=== PATIENT | male | born 1985 | race African-American/Black ===

== ENCOUNTER 2021-02-11 17:39 | Emergency (ER) | payer OTHER, SELFPAY ==
--- NOTE | 2021-02-11 17:47 | ECG_ITS ---
Test Reason : OVERDOSE Blood Pressure : / mmHG Vent. Rate : 110 BPM Atrial Rate : 110 BPM P-R Int : 122 ms QRS Dur : 094 ms QT Int : 344 ms P-R-T Axes : 053 057 049 degrees QTc Int : 465 ms Sinus tachycardia Otherwise normal ECG When compared with ECG of 09-FEB-2019 13:48, No significant change was found Referred By: Cynthia West Electronically Signed By:SEAN ADAMES
[2021-02-11 17:50] VITALS: BP 126/86; BP 140/80; PULSE 120; PULSE 89; RESP 16; TEMP 36.7; O2SAT 98; BMI 22.1
--- NOTE | 2021-02-11 18:10 | ED.OVERDOSE ---
HPI - Overdose General Chief Complaint: Overdose Stated Complaint: od/ 12mg narcan given Time Seen by Provider: 02/11/21 17:47 Source: patient and EMS Mode of arrival: EMS Limitations: no limitations History of Present Illness HPI Narrative: 35-year-old male with no significant past medical history presents via EMS for overdose. He was given 12 mg of Narcan in the community. Patient does admit to using heroin but will not disclose the amount. He states this overdose was accidental, does not describe any other complaints at this time. He does not state to be suicidal, homicidal, denies chest pain or pressure, palpitations, shortness of breath, abdominal pain, abdominal distention, dysuria, hematuria, fevers or chills. MD complaint: accidental overdose Onset (ago): hour(s) (Within the hour of arrival) Context: Accidental Overdose: wanted to get high Treatments Prior to Arrival: narcan Related Data Allergies Allergy/AdvReac Type Severity Reaction Status Date / Time codeine [CODEINE] Allergy Unknown UNKNOWN Unverified 07/22/20 19:30 Review of Systems Review of Systems: Constitutional: No Fever, No Chills ENT/Mouth: No sore throat, No Rhinorrhea Eyes: No Eye Pain, No Swelling, No Redness Cardiovascular: No Chest Pain, No SOB Respiratory: No Cough, No Sputum Gastrointestinal: No Nausea, No Vomiting, No Diarrhea, No abdominal Pain Genitourinary: No Dysuria, No Hematuria Musculoskeletal: No joint pain, No Myalgias, No Joint Swelling Skin: No Skin Lesions, No rash Neuro: No Weakness, No Numbness, No Loss of Consciousness, No Dizziness, No Headache Psych: No Anxiety, No Depression, No SI/HI/AH/VH Heme/Lymph: No Bruising, No Bleeding,No Lymphadenopathy Endocrine: No Polyuria, No Polydipsia Yes all other systems are reviewed and are negative [facility] Past Medical History Attestation statement: The following information was validated with the patient. Source: old records reviewed Medical History Chronic pancreatitis Diabetes Social History Social History Advance Directives: No Advance Directives Information Provided: No Physical Exam Vital Signs: Vital Signs: Last Vital Signs Temp 98.0 F 02/11/21 17:50 Pulse 106 H 02/11/21 19:43 Resp 15 02/11/21 19:43 BP 126/86 02/11/21 17:50 Pulse Ox 98 02/11/21 19:43 Body Mass Index 22.1 Appearance: Alert. Oriented X3. No acute distress. Eyes: Pupils equal, round and reactive to light. EOMI, sclera nonicteric ENT: Pharynx normal. Moist mucous membranes Neck: Normal inspection. Neck supple. No JVD CVS: Tachycardic heart rate and rhythm. Pulses equal to all extremities Respiratory: No respiratory distress. Lung sounds clear to auscultation all lobes Abdomen: Soft and nontender. Skin: Skin warm and dry. Normal skin color. Normal skin turgor. Has large scar on the right side of his neck, present since age 12. Extremities: No lower extremity edema. Moves all extremities against resistance and spontaneously. Neuro: No motor deficit. No sensory deficit. Cranial nerves 2-12 intact. Course Course Course Narrative: 35-year-old male with no significant past medical history presents via EMS from the community for overdose. Was given 12 mg of Narcan. Patient is easily arousable, following directions, speaking to us in a polite manner. Plan of care is to monitor. O2 sat 97% on room air, tachycardic at 112 EKG pending. Lung sounds clear to auscultation all lobes, no reported vomiting low suspicion for aspiration. No chest pain or chest wall tenderness, no faint crackles bilateral lower lung sounds low likelihood of pulmonary edema at this time. 6:10 p.m. O2 sat 97% on room air, patient is alert oriented x4, easily arousable, lung sounds are clear, no chest pain. 7:09 p.m. O2 sat remains at 99% on room air, alert oriented x4, lung sounds clear, no chest pain or pressure. Tachycardic in the 100s. Plan of care is to discharge home. MDM - Overdose Differential Diagnosis Differential diagnosis: Likely drug overdose (Accidental) Medical Records Attestation: I reviewed the patient's medical records. Lab Data Attestation: I reviewed the patient's lab results. Labs: Lab Results 02/11/21 Range/Units 18:19 POC Glucose 152 H (60-115) mg/dL ECG Data Attestation: I personally reviewed and interpreted this ECG as follows: ECG interpretation date: 02/11/21 ECG interpretation time: 17:52 Interpretation: Vent. rate 110 BPM [place] interval 122 ms QRS duration 94 ms QT/QTc 344/465 ms P-R-T axes 53 57 49 Sinus tachycardia Otherwise normal ECG When compared with ECG of 09-FEB-2019 13:48, No significant change was found Discharge Plan Discharge Clinical Impression: Drug overdose Patient Disposition: Home, Self-Care Instructions: Opioid Safety (ED), Opioid Use Disorder (ED) Additional Instructions: Please consider detox. Thank you for choosing this emergency department for evaluation. Please follow-up with primary care physician as needed. Return to the emergency department for any new, concerning, or worsening symptoms. Interventions: ED Discharge Assessment Last Done: 02/11/21 19:44 Discharge Date/Time: 02/11/21 19:45
--- NOTE | 2021-02-11 18:18 | MHC.RECOVSUP ---
? Reason for consult: Overdose o Current location: [facility] o Identified substance use concern: Heroin - Overdose - Support ? Intervention: o Community resources provided o Harm reduction discussion ? Additional information: Patient refused any services.. Patient was supplied with [facility] And [facility] Information as well with a list of Resources (Detox)
[2021-02-11 18:22] LABS: Glucose, Whole Blood 152 mg/dL (60-115)
[2021-02-11] MEDS: Naloxone HCl Nasal TAKE HOME 4 MG SPRAY NOSTRILALT (19:36)
[2021-02-11 19:43] VITALS: PULSE 106; RESP 15; O2SAT 98
== END 2021-02-11 19:45 | disposition home or self-care (01) ==
PROVIDERS: Emergency Provider Internal Medicine
DX: T40.1X1A Poisoning by heroin, accidental (unintentional), initial encounter (principal); Y92.9 Unspecified place or not applicable; F11.10 Opioid abuse, uncomplicated; Z71.51 Drug abuse counseling and surveillance of drug abuser
CPT/HCPCS: 82947; 93005; 99283

== ENCOUNTER 2021-02-12 19:15 | Emergency (ER) | payer OTHER, SELFPAY ==
[2021-02-12 19:22] VITALS: BP 106/56; PULSE 133; RESP 16; TEMP 36.4; O2SAT 95; BMI 31.0
--- NOTE | 2021-02-12 19:30 | ED.OVERDOSE ---
HPI - Overdose General Chief Complaint: Overdose Stated Complaint: OVERDOSE,1MG NARCAN Time Seen by Provider: 02/12/21 19:30 Source: EMS Mode of arrival: EMS History of Present Illness HPI Narrative: Patient picked up by EMS from an alley in [facility] reported patient was acting lethargic a short 2 bags of heroin was given 1 mg Narcan by EMS on arrival patient alert oriented x3 saturating 95% at room air. Patient was seen here yesterday for same MD complaint: accidental overdose Related Data Allergies Allergy/AdvReac Type Severity Reaction Status Date / Time codeine [CODEINE] Allergy Unknown UNKNOWN Unverified 07/22/20 19:30 Review of Systems Review of Systems: Yes all other systems are reviewed and are negative COUNT INCLUDES THE [facility] Past Medical History Medical History Chronic pancreatitis Diabetes Social History Social History Alcohol intake: unknown Use of substances other than those prescribed or required for medical reasons: Yes Substance Use Type: Heroin Advance Directives: No Advance Directives Information Provided: Yes Physical Exam Vital Signs: Vital Signs: Last Vital Signs Temp 97.6 F 02/12/21 19:22 Pulse 133 H 02/12/21 19:22 Resp 16 02/12/21 19:22 BP 106/56 L 02/12/21 19:22 Pulse Ox 95 02/12/21 19:22 Body Mass Index 31.0 Appearance: Alert. Oriented X3. No acute distress. Eyes: PERRLA, No Nystagmus ENT: Pharynx normal. Oral Mucosa moist Neck: Normal inspection. Neck supple. CVS: Normal heart rate and rhythm. Pulses normal. Respiratory: No respiratory distress. Equal air entry bilateral, no wheezing/rales/rhonchi Abdomen: Soft and nontender. Bowel sounds are present, no mass palpable, no CVA tenderness Skin: Skin warm and dry. Normal skin color. Normal skin turgor. IVDA track villagomez++ Extremities: No lower extremity edema. No calf tenderness Neuro: Oriented X 3. No motor deficit. No sensory deficit.No cerebellar signs , cranial nerves II-XII intact MDM - Overdose Lab Data Labs: Lab Results 02/12/21 Range/Units 19:35 COVID-19 ([facility]) Negative (Negative) COVID-19 Clin Com See Note Discharge Plan Discharge Clinical Impression: Drug overdose Patient Disposition: Home, Self-Care Instructions: Opioid Use Disorder (ED) Additional Instructions: stop using opiates and follow-up with detox Interventions: ED Discharge Assessment Last Done: 02/12/21 19:43 Discharge Date/Time: 02/12/21 19:47
[2021-02-12 20:07] LABS: COVID-19 Test Negative (Negative); IDNOW Serial# 9DD0AD1C
== END 2021-02-12 19:47 | disposition home or self-care (01) ==
PROVIDERS: Emergency Provider Internal Medicine
DX: T40.1X1A Poisoning by heroin, accidental (unintentional), initial encounter (principal); R40.4 Transient alteration of awareness; E11.9 Type 2 diabetes mellitus without complications; Y92.480 Sidewalk as the place of occurrence of the external cause; Z20.822 Contact with and (suspected) exposure to COVID-19
CPT/HCPCS: 36415; 87635; 99283; 99284

== ENCOUNTER 2021-03-19 18:21 | Emergency (ER) | payer OTHER, SELFPAY ==
[2021-03-19 18:45] VITALS: BP 144/96; PULSE 110; RESP 20; TEMP 37.2; O2SAT 100; BMI 31.9
[2021-03-19 18:59] LABS: Glucose, Whole Blood 49 mg/dL (60-115)
--- NOTE | 2021-03-19 19:13 | ED_ITS ---
HPI - Overdose General Chief Complaint: Overdose Stated Complaint: overdose Source: patient and EMS Mode of arrival: EMS Limitations: no limitations History of Present Illness HPI Narrative: 35-year-old male with past medical history of type 1 diabetes, and history of substance abuse presents via EMS for suspected heroin fentanyl overdose. Was given Narcan in the field. At this time patient is alert oriented, polite. States that he gets recurrent pancreatitis, is unable to obtain pain medications from a physician and uses heroin and fentanyl at times for pain management. He denies chest pain or pressure, palpitations, shortness of breath, dizziness, lightheadedness, shortness of breath, shortness breath on exertion, abdominal pain, abdominal distention, dysuria, hematuria, nausea, vomiting, diarrhea, constipation, and any other concerning symptoms. MD complaint: accidental overdose Onset (ago): hour(s) (Within the hour of arrival) Treatments Prior to Arrival: narcan Related Data Allergies Allergy/AdvReac Type Severity Reaction Status Date / Time codeine [CODEINE] Allergy Unknown UNKNOWN Unverified 07/22/20 19:30 Review of Systems Review of Systems: Constitutional: No Fever, No Chills ENT/Mouth: No sore throat, No Rhinorrhea Eyes: No Eye Pain, No Swelling, No Redness Cardiovascular: No Chest Pain, No SOB Respiratory: No Cough, No Sputum Gastrointestinal: No Nausea, No Vomiting, No Diarrhea, No abdominal Pain Genitourinary: No Dysuria, No Hematuria Musculoskeletal: No joint pain, No Myalgias, No Joint Swelling Skin: No Skin Lesions, No rash Neuro: No Weakness, No Numbness, No Loss of Consciousness, No Dizziness, No Headache Psych: No Anxiety, No Depression, No SI/HI/AH/VH Heme/Lymph: No Bruising, No Bleeding,No Lymphadenopathy Endocrine: No Polyuria, No Polydipsia PMFSH Past Medical History Attestation statement: The following information was validated with the patient. Source: old records reviewed Medical History Chronic pancreatitis Diabetes Social History Social History Alcohol intake: unknown Smoking Status: Unknown if ever smoked Use of substances other than those prescribed or required for medical reasons: Yes Substance Use Type: Heroin Advance Directives: No Advance Directives Information Provided: Yes Physical Exam Vital Signs: Vital Signs: Last Vital Signs Temp 97.2 F 03/19/21 20:00 Pulse 93 03/19/21 20:00 Resp 20 03/19/21 19:58 BP 177/108 H 03/19/21 20:00 Pulse Ox 100 03/19/21 20:00 Body Mass Index 31.9 Appearance: Alert. Oriented X3. No acute distress. Head: Normal external exam. Normocephalic. Atraumatic. No Venegas signs noted. No raccoon eyes noted Eyes: PERRLA. EOMI. Conjunctiva and sclera normal. Eyelids normal. ENT: TM's Normal. Pharynx normal. Uvula midline. Moist mucous membranes. No trismus noted. No drooling noted. No muffled voice noted. Neck: Normal inspection. Neck supple. No adenopathy. CVS: Normal heart rate and rhythm. Heart sound normal. No murmurs noted. Pulses equal to all extremities. Respiratory: No respiratory distress. Painless inspiration. Breath sounds normal. No wheezes/rales/rhonchi noted. Chest nontender. No accessory muscle usage noted or decreased air movement noted. Abdomen: Soft and nontender. Bowel sounds normal in all 4 quadrants. No distention noted. No organomegaly noted. No visible injury noted. Back: No CVA tenderness. Full range of motion noted. Skin: Skin warm and dry. Normal skin color. Normal skin turgor. No rashes/lesions/lacerations noted. Extremities: No lower extremity edema. Extremities exhibit normal range of motion. Extremities nontender. Neuro: cranial nerves 2-12 intact, no focal neural deficits, strength 5/5 to all extremities, No motor deficit. No sensory deficit. Course Course Course Narrative: 35-year-old male with past medical history of type 1 diabetes, chronic pancreatitis, and substance abuse disorder presents with unintentional overdose. Was given Narcan in the field. It is noted that his blood sugar is 49, we did give PO fluids and food. He did not require any IV intervention as he is alert oriented, walking, and has no focal neural deficits. 7:59 p.m. repeat blood sugar 145. Patient has been able to maintain O2 sats at 100%, patient has been awake, alert oriented x4, polite and cooperative thro ughout his entire stay. His blood pressure has been elevated, he is prescribed amlodipine by a primary care physician however he has not been taking it because he does not feel he needs blood pressure medication. He was advised to take blood pressure medication because of high blood pressure is a silent killer. Education provided by this TEST DESIGN ENGINEER to patient and he agrees to do better about taking his medications. He was given some information about detox facilities. Plan of care is to discharge home. MDM - Overdose Differential Diagnosis Differential diagnosis: Likely drug overdose Medical Records Attestation: I reviewed the patient's medical records. Lab Data Labs: Lab Results 03/19/21 03/19/21 Range/Units 18:56 19:55 POC Glucose 49 L* 145 H (60-115) mg/dL Discharge Plan Discharge Clinical Impression: Drug overdose, Hypoglycemia, Hypertension Patient Disposition: Home, Self-Care Instructions: Hypoglycemia in a Person with Diabetes (ED), Narcotic Safety (ED), Hypertension (ED), Opioid Safety (ED), Narcotic Use Disorder (ED) Additional Instructions: You were evaluated for drug overdose that was unintentional. Please consider detox. Please take your blood sugar on a regular basis as you are diabetic. Your blood sugar was really low at 49. Upon discharge blood sugar was 147. Please take your blood pressure medication. This is really important because you cannot feel if your blood pressure is high. Thank you for choosing this emergency department for evaluation. Please follow-up with primary care physician as needed. Return to the emergency department for any new, concerning, or worsening symptoms. Interventions: ED Discharge Assessment Last Done: 03/19/21 20:19 Discharge Date/Time: 03/19/21 20:20
[2021-03-19 19:58] VITALS: BP 177/108; PULSE 93; RESP 20; TEMP 36.2; O2SAT 100
[2021-03-19 20:00] VITALS: BP 177/108; PULSE 93; TEMP 36.2; O2SAT 100
[2021-03-19 20:03] LABS: Glucose, Whole Blood 145 mg/dL (60-115)
[2021-03-19] MEDS: Naloxone HCl Nasal TAKE HOME 4 MG SPRAY NOSTRILALT (20:08)
== END 2021-03-19 20:20 | disposition home or self-care (01) ==
PROVIDERS: Emergency Provider Emergency Medicine
DX: T40.1X1A Poisoning by heroin, accidental (unintentional), initial encounter (principal); Y92.9 Unspecified place or not applicable; E10.649 Type 1 diabetes mellitus with hypoglycemia without coma; I10 Essential (primary) hypertension
CPT/HCPCS: 82947; 99283; 99285

== ENCOUNTER 2021-04-25 12:27 | Emergency (ER) | payer OTHER, SELFPAY ==
--- NOTE | 2021-04-25 12:38 | ED_ITS ---
HPI - Overdose General Chief Complaint: ETOH/Substance Use Stated Complaint: ALTERED S/P DRUG USE, NARCAN GIVEN Time Seen by Provider: 04/25/21 12:37 Source: patient Mode of arrival: ambulatory Limitations: no limitations History of Present Illness MD complaint: accidental overdose Onset (ago): minute(s) Timing confirmed by: other Context: Accidental Overdose: other (sometimes take heroin for his body aches) Treatments Prior to Arrival: narcan (2mg IN) Related Data Allergies Allergy/AdvReac Type Severity Reaction Status Date / Time codeine [CODEINE] Allergy Unknown UNKNOWN Unverified 07/22/20 19:30 Review of Systems Review of Systems: Constitutional : No Fever, No Chills ENT/Mouth : No Ear Pain, No Nasal Congestion, No sore throat Eyes: No Eye Pain, No Swelling, No Redness Cardiovascular : No Chest Pain, No SOB Respiratory : No Cough, No Sputum, No Dyspnea Gastrointestinal : No Nausea, No Vomiting, No Diarrhea, No Hematochezia, No Melena Genitourinary : No Dysuria, No Urinary Frequency, No Hematuria Musculoskeletal : No Myalgias Skin : No Skin Lesions, No rash Neuro : No Weakness, No Numbness, No Paresthesias, No Dizziness, No Headache Psych : no Anxiety, noDepression, no SI/HI Heme/Lymph: No Lymphadenopathy Endocrine : No Polyuria, No Polydipsia All other systems reviewed and are negative [facility] Past Medical History Attestation statement: The following information was validated with the patient. Medical History Chronic pancreatitis Diabetes Osteomyelitis Surgical History Hx of cholecystectomy Social History Social History (Updated 04/25/21 @ 12:58 by Cleo Singh DO) Alcohol intake: unknown Patient Tobacco Use Status: Tobacco use Unknown Substance Use Type: Heroin Advance Directives: Yes Advance Directives Information Provided: No Advance Directives on File: No Physical Exam Vital Signs: Vital Signs: Last Vital Signs Temp 98.9 F 04/25/21 12:47 Pulse 110 H 04/25/21 12:47 Resp 18 04/25/21 12:47 BP 128/73 04/25/21 12:47 Pulse Ox 98 04/25/21 12:47 Body Mass Index 29.1 Appearance: Alert. Oriented X3. No acute distress. Eyes: Pupils equal, round and reactive to light. ENT: Pharynx normal. Neck: Normal inspection. Neck supple. CVS: Normal heart rate and rhythm. Pulses normal. Respiratory: No respiratory distress. Breath sounds normal. Abdomen: Soft and nontender. Skin: Skin warm and dry. Normal skin color. Normal skin turgor. Extremities: No lower extremity edema. No calf ttp Neuro: Oriented X 3. No motor deficit. No sensory deficit. MDM - Overdose MDM Narrative Medical decision making narrative: 35 yo male accidental heroin overdose - no SI, GCS 15, he agrees to stay for 1 hour observation does not want detox, possible recovery coaches, given narcan in hand Discharge Plan Discharge Clinical Impression: Drug overdose Qualifiers: Encounter type: initial encounter Injury intent: accidental or unintentional Qualified Code(s): T50.901A - Poisoning by unspecified drugs, medicaments and biological substances, accidental (unintentional), initial encounter Patient Disposition: Home, Self-Care Instructions: Opioid Use Disorder (ED) Additional Instructions: return to ED for any worsening symptoms or concerns carry narcan Stand Alone Forms: Work/School Release Interventions: ED Discharge Assessment Last Done: 04/25/21 13:41 Discharge Date/Time: 04/25/21 13:41
[2021-04-25 12:47] VITALS: BP 125/70; BP 128/73; PULSE 110; PULSE 140; RESP 18; TEMP 37.2; O2SAT 90; O2SAT 98; BMI 29.1
[2021-04-25] MEDS: Naloxone HCl Nasal TAKE HOME 4 MG SPRAY NOSTRILALT (13:37)
--- NOTE | 2021-04-25 13:48 | MHC.RECOVSUP ---
? Reason for consult:Continuity of care o Current location:[address] [place] [address] o Identified substance use concern:Heroin - Support ? Intervention: o Community resources provided o Harm reduction discussion ? Plan: o Patient to follow up with [facility] after discharge ? Additional information: Pt. given resources, Pt. refuses all services
--- NOTE | 2021-04-25 14:49 | MHC.RECOVSUP ---
Recovery Support note: Patient is a 35 year old Bangladeshi speaking male who presented to [facility] ED due to an accidental overdose. This keno writer and Timber Supervisor Leo met with patient to discuss his recovery and treatment options. Patient reports he has been living with chronic pain due to medical conditions that he has been dealing with since childhood. Patient reports he has experienced stigma due to his heroin use and that he only uses to manage his pain. Patient acknowledged how dangerous it is to use substances obtained from the community and he reports a desire to stop using. Patient does not want to get on methadone. Patient expressed interest in Suboxone and has information on the [facility]. Discussed pain management with patient and provided him with information on the clinic at [facility]. Timber Supervisor provided patient with information on community supports.
== END 2021-04-25 13:41 | disposition home or self-care (01) ==
PROVIDERS: Emergency Provider Emergency Medicine; PCP Pediatrics
DX: T40.1X1A Poisoning by heroin, accidental (unintentional), initial encounter (principal); Y92.9 Unspecified place or not applicable
CPT/HCPCS: 99283

== ENCOUNTER 2021-06-04 14:16 | Emergency (ER) | payer OTHER, SELFPAY ==
[2021-06-04 14:27] VITALS: BP 148/88; BP 170/75; PULSE 105; PULSE 111; TEMP 36.8; O2SAT 96; BMI 25.8
--- NOTE | 2021-06-04 14:28 | ED.OVERDOSE ---
HPI - Overdose General Chief Complaint: ETOH/Substance Use Stated Complaint: found on down sidewalk s/p heroin use,no narcan Time Seen by Provider: 06/04/21 14:28 Source: patient and EMS Mode of arrival: EMS Limitations: no limitations History of Present Illness HPI Narrative: 35 yo male unintentional heroin overose, no trauma, no narcan needed but did drink and use today, no SI complaint: accidental overdose Onset (ago): minute(s) Context: Accidental Overdose: wanted to get high and other (used 1.5 bags of heroin, found passed out on side of road, no signs of trauma) Associated symptoms: other (not related but notes L eye has stye) Treatments Prior to Arrival: none Related Data Allergies Allergy/AdvReac Type Severity Reaction Status Date / Time codeine [CODEINE] Allergy Unknown UNKNOWN Unverified 07/22/20 19:30 Review of Systems Review of Systems: Constitutional : No Weight loss, No Fever, No Chills, No Fatigue, No Malaise ENT/Mouth : No sore throat, No Rhinorrhea Eyes: No Eye Pain, No Swelling, pos Redness Cardiovascular : No Chest Pain, No SOB, No Dyspnea on Exertion, No Orthopnea, No Edema, No Palpitations Respiratory : No Cough, No Sputum, No Wheezing Gastrointestinal : No Nausea, No Vomiting, No Diarrhea, No Constipation, No abdominal Pain, No Hematochezia, No Melena Genitourinary : No Dysuria, No Urinary Frequency, No Hematuria, Musculoskeletal : No joint pain, No Myalgias, No Joint Swelling Skin : No Skin Lesions, No rash Neuro : No Weakness, No Numbness, No Dizziness, No Headache Psych : No Anxiety/Panic, No Depression, no SI/HI Heme/Lymph: No Bruising, No Bleeding,No Lymphadenopathy Endocrine : No Polyuria, No Polydipsia All other systems reviewed and are negative PMFSH Past Medical History Attestation statement: The following information was validated with the patient. Medical History Chronic pancreatitis Diabetes Osteomyelitis Surgical History Hx of cholecystectomy Social History Social History Alcohol intake: current Alcohol intake frequency: a few times a week Patient Tobacco Use Status: Current everyday Tobacco user Use of substances other than those prescribed or required for medical reasons: Yes Substance Use Type: Heroin and Marijuana Advance Directives: No Advance Directives Information Provided: No Physical Exam Vital Signs: Vital Signs: Last Vital Signs Temp 98.2 F 06/04/21 14:27 Pulse 111 H 06/04/21 14:27 BP 148/88 H 06/04/21 14:27 Pulse Ox 96 06/04/21 14:27 Body Mass Index 25.8 Appearance: Alert. Oriented X3. No acute distress. Eyes: Pupils equal, round and reactive to light. L eye small stye noted with mild conjunctival injection lower lid ENT: Pharynx normal. Neck: Normal inspection. Neck supple. CVS: Normal heart rate and rhythm. Pulses normal. Respiratory: No respiratory distress. Breath sounds normal. Abdomen: Soft and nontender. Skin: Skin warm and dry. Normal skin color. Normal skin turgor. Extremities: No lower extremity edema. No calf ttp Neuro: Oriented X 3. No motor deficit. No sensory deficit. Course Course Course Narrative: MDM: 35 yo male unintentional heroin overdose no signs of trauma - offered recovery coaches at this time c/o L eye stye - will provide ointment, dispo per clinical stability and discussion with substance abuse teams no need for narcan observed in ED - stable for DC Discharge Plan Discharge Clinical Impression: Accidental heroin overdose Patient Disposition: Home, Self-Care Instructions: Opioid Use Disorder (ED) Additional Instructions: return to ED for any worsening symptoms or concerns please utilize the resources given to you by Isaias from our treatment team
[2021-06-04 14:31] LABS: Glucose, Whole Blood 230 mg/dL (60-115)
[2021-06-04] MEDS: Erythromycin Base 0.5% Oph Oin 1 GM TUBE 1 CM EYE-LEFT (14:40)
--- NOTE | 2021-06-04 15:13 | MHC.RECOVSUP ---
Recovery Support note: Patient is a 35 year old Eritrean speaking male who presented to [facility] via EMS after being found in the community lying down, under the influence of opioids. Patient is known to this check writer salesperson from a previous consultation. When this check writer salesperson approached, patient was awake, alert and engaging with ED staff. Patient reports he uses due to chronic pain and stress related to his family treating him poorly. Patient suspects that the substance he used prior to arrival had fentanyl in it. Patient reports his body does not tolerate fentanyl well and he reports it causes memory loss, something he typically does not experience. Discussed with patient the high incidence of fentanyl in this area and the dangers inherent in substance use. Patient reports he has never had Suboxone or methadone prescribed however he has gotten Suboxone off of the street. Discussed each medication with patient and provided him with information on clinics near his home. Encouraged patient to go to a methadone clinic on Sunday to get established as a patient. Discussed the outpatient therapy component of MAT and how it may benefit patient. Patient reports he is not interested in detox and that he wants to discharge. Discussed case with patient's RN and ED provider.
== END 2021-06-04 15:12 | disposition home or self-care (01) ==
PROVIDERS: Emergency Provider Emergency Medicine; PCP Pediatrics
DX: T40.1X1A Poisoning by heroin, accidental (unintentional), initial encounter (principal); Y92.480 Sidewalk as the place of occurrence of the external cause; H00.015 Hordeolum externum left lower eyelid; E11.9 Type 2 diabetes mellitus without complications; F17.210 Nicotine dependence, cigarettes, uncomplicated; F12.90 Cannabis use, unspecified, uncomplicated
CPT/HCPCS: 82947; 99284

== ENCOUNTER 2021-07-27 09:58 | Outpatient (REF) | payer OTHER, SELFPAY ==
[2021-07-27 17:08] LABS: Fentanyl, urine POSITIVE (Not Detect)
== END 2021-07-27 09:59 | disposition home or self-care (01) ==
LOC: CF 09:58
PROVIDERS: Visit Provider Internal Medicine
DX: F11.20 Opioid dependence, uncomplicated (principal); T50.901A Poisoning by unspecified drugs, medicaments and biological substances, accidental (unintentional), initial encounter
CPT/HCPCS: 36415; 80307; 99202

== ENCOUNTER 2021-07-31 13:29 | Emergency (ER) | payer OTHER, SELFPAY ==
[2021-07-31 14:10] VITALS: BP 184/96; BP 198/75; PULSE 126; RESP 16; TEMP 36.9; O2SAT 98; BMI 27.2
[2021-07-31 14:21] LABS: Basophils Percent Auto 0.4 % (0-2); Eosinophils Percent Auto 0.6 % (0-4); Hematocrit 27.1 % (42-52); Hemoglobin 9.2 g/dl (14.0-18.0); Imm Gran Abs Auto 0.02 X10*3/uL (0.00-0.03); Imm Gran Pct Auto 0.4 % (0.0-0.4); Lymphocytes Absolute Auto 0.6 X10*3/uL (1.2-4.9); Lymphocytes Percent Auto 12.1 % (20-40); MANUAL DIFF FLAG NO; Mean Corpuscular HGB Conc 33.9 g/dl (31.0-36.0); Mean Corpuscular Hemoglobin 29.4 pg (27.0-33.0); Mean Corpuscular Volume 86.6 fL (80-98); Mean Platelet Volume 9.6 fL (9.4-12.4); Monocytes Absolute Auto 0.3 X10*3/uL (0.1-1.2); Monocytes Percent Auto 6.9 % (2-11); Neutrophils Percent Auto 79.6 % (45-73); Platelet Count 275 X10*3/uL (160-400); Red Blood Count 3.13 X10*6/uL (4.60-5.80); Red Cell Distribution Width 13.2 % (11.0-16.0)
--- NOTE | 2021-07-31 14:33 | ED_ITS ---
HPI - Overdose General Chief Complaint: Overdose Stated Complaint: FOUND EMOTIONAL, ? OD, NO NARCAN NEEDED PER EMS Time Seen by Provider: 07/31/21 14:00 History of Present Illness HPI Narrative: Patient is a 35-year-old male history of polysubstance abuse. Patient claims that he used 2 bags of heroin just prior to arrival. Also complained that he signed out AMA from [facility] after having acute bouts of renal failure. Patient denies any chest pain shortness of breath any nausea vomiting. Has no systemic complaints. Patient was using heroin just prior to arrival. Related Data Previous Rx's Medication Instructions Recorded buprenorphine 8 mg-naloxone 2 mg 2 film SUBLINGUAL DAILY 7 Days #14 07/27/21 sublingual film (Suboxone) ea clonidine HCl 0.1 mg tablet 0.1 mg PO TID #21 tab 07/27/21 hydroxyzine pamoate 25 mg capsule 25 mg PO TID PRN #21 cap 07/27/21 (Vistaril) Review of Systems Review of Systems: No chest pain or shortness breath no dizziness no nausea no vomiting Positive generalized malaise Yes all other systems are reviewed and are negative [facility] Past Medical History Attestation statement: The following information was validated with the patient. Medical History Chronic pancreatitis Diabetes Fentanyl use disorder, moderate, dependence Opioid use disorder Osteomyelitis Surgical History Hx of cholecystectomy Social History Social History Alcohol intake: current Alcohol intake frequency: a few times a week Patient Tobacco Use Status: Current everyday Tobacco user Substance Use Type: Heroin and Marijuana Advance Directives: No Advance Directives Information Provided: Yes Physical Exam Vital Signs: Vital Signs: Last Vital Signs Temp 98.4 F 07/31/21 14:10 Pulse 126 H 07/31/21 14:10 Resp 16 07/31/21 14:10 BP 184/96 H 07/31/21 14:10 Pulse Ox 98 07/31/21 14:10 Body Mass Index 27.2 Appearance: Alert. Oriented X3. No acute distress. Eyes: Pupils equal, round and reactive to light. ENT: Pharynx normal. Neck: Normal inspection. Neck supple. No lymph nodes noted. No crepitus CVS: Normal heart rate and rhythm. Pulses normal. Normal S1 and S2 Respiratory: No respiratory distress. Breath sounds normal. No Wheezing. No rales Abdomen: Soft and nontender. No rigidity. No distention. good BS x4 Skin: Skin warm and dry. Normal skin color. Normal skin turgor. Extremities: No lower extremity edema. Neurovascular intact to all extremities. No Lacerations. No Rash Neuro: Oriented X 3. No motor deficit. No sensory deficit. Moving all extermities. No slurred speech MDM - Overdose MDM Narrative Medical decision making narrative: Patient's BUN and creatinine is elevated. Creatinine today is 2.74. Baseline creatinine is normal. Patient was at [facility] after an abrupt overdose. Was found to be in renal insufficiency. Patient was admitted for 48 hours. He signed out AMA this morning. Subsequently had 2 bags of heroin. Was found to be altered. Patient claims he will not use any more heroin and he will drink lots of fluid and will closely follow-up. Patient does not want to stay in the hospital. He understood his kidney has failed. This is very severe. Patient is leaving against medical advice. Medical Records Attestation: I reviewed the patient's medical records. Lab Data Attestation: I reviewed the patient's lab results. Result diagrams: 07/31/21 14:15 07/31/21 14:15 Labs: Lab Results 07/31/21 07/31/21 Range/Units 14:15 14:15 WBC 5.0 (4.8-10.8) X10*3/uL RBC 3.13 L (4.60-5.80) X10*6/uL Hgb 9.2 L (14.0-18.0) g/dl Hct 27.1 L (42-52) % MCV 86.6 (80-98) fL MCH 29.4 (27.0-33.0) pg MCHC 33.9 (31.0-36.0) g/dl RDW 13.2 (11.0-16.0) % Plt Count 275 (160-400) X10*3/uL MPV 9.6 (9.4-12.4) fL Immature Gran % (Auto) 0.4 (0.0-0.4) % Neut % (Auto) 79.6 H (45-73) % Lymph % (Auto) 12.1 L (20-40) % [place] % (Auto) 6.9 (2-11) % Eos % (Auto) 0.6 (0-4) % Baso % (Auto) 0.4 (0-2) % Lymph # (Auto) 0.6 L (1.2-4.9) X10*3/uL [place] # (Auto) 0.3 (0.1-1.2) X10*3/uL Eos # (Auto) 0.0 (0.0-0.4) X10*3/uL Baso # (Auto) 0.0 (0.0-0.2) X10*3/uL Abs Immat Gran (auto) 0.02 (0.00-0.03) X10*3/uL Absolute Neuts (auto) 4.0 (2.0-8.3) X10*3/uL Absolute Nucleated RBC 0.000 (0.0-0.012) X10*3/uL Nucleated RBC % (auto) 0.0 (0.0-0.2) /100WBC Sodium 136 (135-145) mmol/L Potassium 4.9 (3.3-5.1) mmol/L Chloride 111 H (96-108) mmol/L Carbon Dioxide 15 L (22-29) mmol/L Anion Gap 15 (12-20) BUN 21 H (9-16) mg/dL Creatinine 2.74 H (0.5-1.4) mg/dL Estim Creat Clear Calc 38.8 Estimated GFR 27 Random Glucose 307 H (60-115) mg/dL Calcium 8.9 (8.4-10.2) mg/dL Discharge Plan Discharge Clinical Impression: Opioid use disorder Patient Disposition: Left Against Medical Advice Instructions: Narcotic Use Disorder (ED), Acute Kidney Injury (DC), Against Medical Advice (ED) Additional Instructions: You are leaving against medical advice. There is a risk that your kidney can failed. Kidney failure can lead to . At the very least loss of current lifestyle. Prescriptions: No Action clonidine HCl 0.1 mg tablet 0.1 mg PO TID Qty: 21 RF: 0 hydroxyzine pamoate [Vistaril] 25 mg capsule 25 mg PO TID PRN (Reason: itching) Qty: 21 RF: 0 buprenorphine-naloxone [Suboxone] 8-2 mg film 2 film sublingual DAILY 7 Days Qty: 14 RF: 0 Referrals: Physician,Unknown [Primary Care Provider] - 2 days (Please drink lots of fluids. Please closely follow-up with your doctor. Your kidney has failed today. This can kill you. Please follow-up. Please stop using heroin. Using heroin can kill you. Please go to detox. Please stop using heroin)
[2021-07-31 14:37] LABS: Anion Gap 15 (12-20); Blood Urea Nitrogen 21 mg/dL (9-16); Calcium 8.9 mg/dL (8.4-10.2); Carbon Dioxide 15 mmol/L (22-29); Chloride 111 mmol/L (96-108); Creatinine Clr Calc Pharmacy 38.8; Estimated Glomerular Filt Rate 27; Glucose Random 307 mg/dL (60-115); Potassium 4.9 mmol/L (3.3-5.1); Sodium 136 mmol/L (135-145)
--- NOTE | 2021-07-31 15:22 | MHC.RECOVSUP ---
Recovery Support note: Patient is a 35 year old Palestinian speaking male who presented to [facility] ED after an overdose. Patient is known to this newswriter from previous consultations. Patient reports he was recently at [facility] due to kidney failure and that he left AMA. Discussed with patient the importance of remaining in treatment. Patient has an appointment at the [facility] on 08/02 and he reports that he plans to attend it. Patient began falling asleep during consultation. This newswriter will follow up with patient later on if he remains in the hospital.
== END 2021-07-31 15:23 | disposition left against medical advice (07) ==
PROVIDERS: Emergency Provider Emergency Medicine Emergency Medical Services
DX: T40.1X1A Poisoning by heroin, accidental (unintentional), initial encounter (principal); Y92.9 Unspecified place or not applicable; F11.10 Opioid abuse, uncomplicated; F12.90 Cannabis use, unspecified, uncomplicated; F17.200 Nicotine dependence, unspecified, uncomplicated; Z71.51 Drug abuse counseling and surveillance of drug abuser; Z71.6 Tobacco abuse counseling; Z79.899 Other long term (current) drug therapy
CPT/HCPCS: 36415; 80048; 85025; 99283

== ENCOUNTER 2021-08-02 09:54 | Outpatient (REF) | payer OTHER, SELFPAY ==
[2021-08-02 12:54] LABS: Hematocrit 25.7 % (42-52); Hemoglobin 8.5 g/dl (14.0-18.0); Mean Corpuscular HGB Conc 33.1 g/dl (31.0-36.0); Mean Corpuscular Volume 87.7 fL (80-98); Mean Platelet Volume 10.1 fL (9.4-12.4); Platelet Count 253 X10*3/uL (160-400); Red Blood Count 2.93 X10*6/uL (4.60-5.80); Red Cell Distribution Width 13.7 % (11.0-16.0)
[2021-08-02 13:16] LABS: Alanine Aminotransferase 44 U/L (0-40); Albumin Level 4.4 g/dL (3.5-5.0); Alkaline Phosphatase 78 U/L (39-117); Anion Gap 13 (12-20); Aspartate Amino Transferase 28 U/L (5-37); Bilirubin Direct 0.3 mg/dL (0.0-0.5); Bilirubin Total 0.5 mg/dL (0.0-1.0); Blood Urea Nitrogen 33 mg/dL (9-16); Calcium 9.2 mg/dL (8.4-10.2); Carbon Dioxide 17 mmol/L (22-29); Chloride 109 mmol/L (96-108); Estimated Glomerular Filt Rate 23; Glucose Random 305 mg/dL (60-115); Potassium 5.1 mmol/L (3.3-5.1); Sodium 134 mmol/L (135-145); Total Protein 7.4 g/dL (6.5-8.0)
[2021-08-03 08:02] LABS: Hepatitis A Antibody IgG Nonreactive (Nonreactive)
[2021-08-03 08:08] LABS: Syphilis Screen Nonreactive (Nonreactive)
[2021-08-03 08:45] LABS: HBsAGNum1 0.17 S/CO (0.00-0.99); Hepatitis B Surface Antigen Negative (Negative)
[2021-08-03 09:05] LABS: HBS Num1 37.24 mIU/mL (0-7.99); HIV Num 1 0.12 S/CO (0.00-0.99); ~Hepatitis B Surface Antibody REACTIVE (Nonreactive)
[2021-08-03 09:06] LABS: HIV AB/AG Nonreactive (Nonreactive)
[2021-08-05 13:50] LABS: TS Negative Control Passed; TS Panel A 0; TS Panel B 0; TS Positive Control Passed; TSpotTB Negative (SeeBelow)
== END 2021-08-02 09:55 | disposition home or self-care (01) ==
LOC: HO.LAB 09:54
PROVIDERS: Visit Provider Internal Medicine
DX: Z01.84 Encounter for antibody response examination (principal); Z11.4 Encounter for screening for human immunodeficiency virus [HIV]; T50.901A Poisoning by unspecified drugs, medicaments and biological substances, accidental (unintentional), initial encounter; F11.20 Opioid dependence, uncomplicated
CPT/HCPCS: 36415; 80048; 80076; 85027; 86481; 86706; 86708; 86780; 87340; 87389; 99212

== ENCOUNTER 2021-08-10 13:21 | Outpatient (REF) | payer OTHER, SELFPAY ==
[2021-08-10 18:29] LABS: Fentanyl, urine POSITIVE (Not Detect)
== END 2021-08-10 13:22 | disposition home or self-care (01) ==
LOC: HO.LNP 13:21
PROVIDERS: PCP Pediatrics; Visit Provider Internal Medicine
DX: F11.20 Opioid dependence, uncomplicated (principal); Z79.899 Other long term (current) drug therapy
CPT/HCPCS: 80305; 80307; 99202

== ENCOUNTER 2021-08-17 11:02 | Emergency (ER) | payer OTHER, SELFPAY ==
[2021-08-17 11:06] VITALS: BP 186/98; PULSE 118; RESP 16; TEMP 37.1; O2SAT 99; BMI 27.8
[2021-08-17 11:09] LABS: Glucose, Whole Blood 389 mg/dL (60-115)
--- NOTE | 2021-08-17 11:48 | ED_ITS ---
HPI - Overdose General Chief Complaint: ETOH/Substance Use Stated Complaint: OD Time Seen by Provider: 08/17/21 11:42 Source: patient Mode of arrival: wheelchair Limitations: no limitations History of Present Illness HPI Narrative: Patient is brought to the emergency room by wheelchair from a public bathroom in the hospital. Patient was waiting for an appointment, patient went into the bathroom and injected heroin. Patient was found by 3 security. Three syringes were found along with bags of heroin. 4 mg of Narcan were administered intranasally. By the time patient arrived to emergency room he was drowsy but alert and awake. Patient denies suicidal or homicidal ideation MD complaint: accidental overdose Related Data Previous Rx's Medication Instructions Recorded clonidine HCl 0.1 mg tablet 0.1 mg PO TID #21 tab 07/27/21 hydroxyzine pamoate 25 mg capsule 25 mg PO TID PRN #21 cap 07/27/21 (Vistaril) buprenorphine 8 mg-naloxone 2 mg 2 film SUBLINGUAL DAILY 7 Days #14 08/10/21 sublingual film (Suboxone) ea Allergies Allergy/AdvReac Type Severity Reaction Status Date / Time No Known Allergies Allergy Verified 08/10/21 13:40 Review of Systems Review of Systems: Constitutional : No Weight loss, No Fever, No Chills, No Night Sweats, No Fatigue, No Malaise ENT/Mouth : No Hearing loss, No Ear Pain, No Nasal Congestion, No Sinus Pain, No Hoarseness, No sore throat, No Rhinorrhea, No Swallowing Difficulty Eyes: No Eye Pain, No Swelling, No Redness, No Foreign Body, No Discharge, No Vision Changes Cardiovascular : No Chest Pain, No SOB, No Dyspnea on Exertion, No Orthopnea, No Edema, No Palpitations Respiratory : No Cough, No Sputum, No Wheezing, No Smoke Exposure, No Dyspnea Gastrointestinal : No Nausea, No Vomiting, No Diarrhea, No Constipation, No abdominal Pain, No Hematochezia, No Melena Genitourinary : no irregular bleeding, No Dysuria, No Urinary Frequency, No Hematuria, No Urinary Incontinence, No Urgency, No Flank Pain, No Urinary Flow Changes, No Hesitancy Musculoskeletal : No joint pain, No Myalgias, No Joint Swelling Skin : No Skin Lesions, No rash Neuro : No Weakness, No Numbness, No Paresthesias, No Loss of Consciousness, No Dizziness, No Headache Psych : No Anxiety/Panic, No Depression, No SI/HI/AH/VH, No Social Issues, Heme/Lymph: No Bruising, No Bleeding,No Lymphadenopathy Endocrine : No Polyuria, No Polydipsia, No Temperature Intolerance [facility] Past Medical History Medical History Chronic pancreatitis Diabetes Fentanyl use disorder, moderate, dependence Opioid use disorder Osteomyelitis Surgical History Hx of cholecystectomy Social History Social History Alcohol intake: current Alcohol intake frequency: a few times a week Patient Tobacco Use Status: Current everyday Tobacco user Substance Use Type: Heroin and Marijuana Advance Directives: No Advance Directives Information Provided: No Physical Exam Vital Signs: Vital Signs: Last Vital Signs Temp 98.8 F 08/17/21 11:06 Pulse 118 H 08/17/21 11:06 Resp 16 08/17/21 11:06 BP 186/98 H 08/17/21 11:06 Pulse Ox 99 08/17/21 11:06 Body Mass Index 27.8 Const: Other: Appearance: Alert. Oriented X3. No acute distress. Eyes: Pupils equal, round and reactive to light. ENT: Pharynx normal. Neck: Normal inspection. Neck supple. No lymph nodes noted. No crepitus CVS: Normal heart rate and rhythm. Pulses normal. Normal S1 and S2 Respiratory: No respiratory distress. Breath sounds normal. No Wheezing. No rales Abdomen: Soft and nontender. No rigidity. No distention. good BS x4 Skin: Skin warm and dry. Normal skin color. Normal skin turgor. Extremities: No lower extremity edema. No Lacerations. No Rash Neuro: Oriented X 3. No motor deficit. No sensory deficit. Moving all extermities. No slurred speech. Course Course Course Narrative: Patient has been awake and alert x3 since arrival. Patient is concerned that he has his father waiting for him in the car and he is an elderly gentleman. Patient was seen by the livestock judging coach. Patient declined any help. Patient is currently on Suboxone. Patient's glucose was elevated. Patient decline insulin of fluid, or further labs. Patient is asymptomatic. Patient has been here for about an hour, I recommended the patient to stay here for an additional hour, patient declined. will be leaving against medical advice. MDM - Overdose Lab Data Labs: Lab Results 08/17/21 Range/Units 11:06 POC Glucose 389 H* (60-115) mg/dL Discharge Plan Discharge Clinical Impression: Acute hyperglycemia Drug overdose Qualifiers: Encounter type: initial encounter Injury intent: accidental or unintentional Qualified Code(s): T50.901A - Poisoning by unspecified drugs, medicaments and biological substances, accidental (unintentional), initial encounter Patient Disposition: Left Against Medical Advice Instructions: Adult Overdose (ED), Diabetic Hyperglycemia (ED) Additional Instructions: Please follow-up with your primary care physician tomorrow. If you have any worsening or new symptoms, please return to the emergency room or call 911 Prescriptions: No Action clonidine HCl 0.1 mg tablet 0.1 mg PO TID Qty: 21 RF: 0 hydroxyzine pamoate [Vistaril] 25 mg capsule 25 mg PO TID PRN (Reason: itching) Qty: 21 RF: 0 buprenorphine-naloxone [Suboxone] 8-2 mg film 2 film sublingual DAILY 7 Days Qty: 14 RF: 0
--- NOTE | 2021-08-17 12:03 | MHC.RECOVSUP ---
? Reason for consult:Continuity of care o Current location:Bed 22 o Identified substance use concern:Heroin - Overdose - Support ? Intervention: o MAT started or to be started o Harm reduction discussion ? Plan: o Referral to CCC o Patient to follow up with [facility] after discharge ? Additional information: Pt. leaving AMA, pt. seeking MAT, pt.to schedule appt with CCC upon discharge.
--- NOTE | 2021-08-17 12:18 | MHC.RECOVSUP ---
Recovery Support note: Patient is a 35 year old Wallisian speaking male who presented to [facility] [place] [facility] while awaiting an appointment at the [facility]. Patient is known to this scientific technical writer from previous consultations. Patient reports a desire to get on Suboxone and reports he has plenty at home. Discussed home induction with patient and explained that he will be unable to make it to the [facility] in time for his appointment. Patient acknowledged and reports he will contact them after discharge to reschedule. Encouraged patient to remain in the hospital for observation and insulin however patient declined, stating that his father is elderly and waiting in the car and that he has to leave. Patient left AMA and reports no questions at this time.
== END 2021-08-17 12:04 | disposition left against medical advice (07) ==
PROVIDERS: Emergency Provider Emergency Medicine
DX: T40.1X1A Poisoning by heroin, accidental (unintentional), initial encounter (principal); F11.20 Opioid dependence, uncomplicated; Y92.238 Other place in hospital as the place of occurrence of the external cause; E11.65 Type 2 diabetes mellitus with hyperglycemia
CPT/HCPCS: 82947; 99282

== ENCOUNTER 2021-08-24 14:33 | Outpatient (REF) | payer OTHER, SELFPAY ==
[2021-08-24 17:51] LABS: Fentanyl, urine POSITIVE (Not Detect)
== END 2021-08-24 14:34 | disposition home or self-care (01) ==
LOC: HO.LNP 14:33
PROVIDERS: Visit Provider Internal Medicine
DX: F11.20 Opioid dependence, uncomplicated (principal); Z79.899 Other long term (current) drug therapy
CPT/HCPCS: 80305; 80307; 99212

== ENCOUNTER → 2021-09-07 14:26 | Outpatient (BNVA) | payer OTHER, SELFPAY | PROVIDERS: Visit Provider Internal Medicine | DX: F11.20 Opioid dependence, uncomplicated (principal) | CPT/HCPCS: 99212 ==

== ENCOUNTER 2021-09-14 09:57 | Outpatient (REF) | payer OTHER, SELFPAY ==
[2021-09-14 18:25] LABS: Fentanyl, urine POSITIVE (Not Detect)
[2021-09-19 14:28] LABS: Buprenorphine Negative
== END 2021-09-14 09:58 | disposition home or self-care (01) ==
LOC: HO.LNP 09:57
PROVIDERS: Visit Provider Internal Medicine
DX: F11.20 Opioid dependence, uncomplicated (principal); F17.210 Nicotine dependence, cigarettes, uncomplicated; F12.90 Cannabis use, unspecified, uncomplicated; Z51.81 Encounter for therapeutic drug level monitoring
CPT/HCPCS: 80305; 80307; 80348; 80362; 99212

== ENCOUNTER → 2021-09-21 14:52 | Outpatient (BNVA) | payer OTHER, SELFPAY | PROVIDERS: Visit Provider Internal Medicine | DX: F11.20 Opioid dependence, uncomplicated (principal); M86.9 Osteomyelitis, unspecified; E11.9 Type 2 diabetes mellitus without complications; K86.1 Other chronic pancreatitis; F17.210 Nicotine dependence, cigarettes, uncomplicated; F12.20 Cannabis dependence, uncomplicated; Z51.81 Encounter for therapeutic drug level monitoring | CPT/HCPCS: 80305; 99212 ==

== ENCOUNTER → 2021-09-28 14:15 | Outpatient (BNVA) | payer OTHER, SELFPAY | PROVIDERS: Visit Provider Internal Medicine | DX: F11.20 Opioid dependence, uncomplicated (principal); Z51.81 Encounter for therapeutic drug level monitoring; Z79.899 Other long term (current) drug therapy | CPT/HCPCS: 80305; 99212 ==

== ENCOUNTER 2021-09-28 15:31 | Emergency (ER) | payer OTHER, SELFPAY ==
--- NOTE | 2021-09-28 15:37 | ED.OVERDOSE ---
HPI - Overdose General Chief Complaint: Overdose Stated Complaint: od Time Seen by Provider: 09/28/21 15:33 Source: patient Mode of arrival: wheelchair Limitations: no limitations History of Present Illness HPI Narrative: On outpatient response was called to the bathroom in the hospital. Patient admits to using heroin, patient denies suicidal ideation. Patient states that the best place to overdose is in the hospital because he can be saved if the unintentionally overdoses. On arrival to the ED, patient was very confused, seemed to have trouble breathing. Patient was given 4 mg of intranasal Narcan. Patient is now awake, alert. Patient has history of overdosing in the hospital bathroom. Related Data Home Medications Medication Instructions Recorded Confirmed amlodipine 5 mg tablet 5 mg PO DAILY 09/07/21 insulin lispro 100 unit/mL SUBCUT 09/07/21 subcutaneous pen (Humalog KwikPen (U-100) Insulin) pravastatin 40 mg tablet 40 mg PO DAILY 09/07/21 Previous Rx's Medication Instructions Recorded clonidine HCl 0.1 mg tablet 0.1 mg PO TID #21 tab 07/27/21 hydroxyzine pamoate 25 mg capsule 25 mg PO TID PRN #21 cap 07/27/21 (Vistaril) buprenorphine 8 mg-naloxone 2 mg 2 film SUBLINGUAL DAILY 4 Days #8 09/28/21 sublingual film (Suboxone) ea Allergies Allergy/AdvReac Type Severity Reaction Status Date / Time No Known Allergies Allergy Verified 09/28/21 15:40 Review of Systems Review of Systems: Constitutional : No Weight loss, No Fever, No Chills, No Night Sweats, No Fatigue, No Malaise ENT/Mouth : No Hearing loss, No Ear Pain, No Nasal Congestion, No Sinus Pain, No Hoarseness, No sore throat, No Rhinorrhea, No Swallowing Difficulty Eyes: No Eye Pain, No Swelling, No Redness, No Foreign Body, No Discharge, No Vision Changes Cardiovascular : No Chest Pain, No SOB, No Dyspnea on Exertion, No Orthopnea, No Edema, No Palpitations Respiratory : No Cough, No Sputum, No Wheezing, No Smoke Exposure, No Dyspnea Gastrointestinal : No Nausea, No Vomiting, No Diarrhea, No Constipation, No abdominal Pain, No Hematochezia, No Melena Genitourinary : no irregular bleeding, No Dysuria, No Urinary Frequency, No Hematuria, No Urinary Incontinence, No Urgency, No Flank Pain, No Urinary Flow Changes, No Hesitancy Musculoskeletal : No joint pain, No Myalgias, No Joint Swelling Skin : No Skin Lesions, No rash Neuro : No Weakness, No Numbness, No Paresthesias, No Loss of Consciousness, No Dizziness, No Headache Psych : No Anxiety/Panic, No Depression, No SI/HI/AH/VH, admits to heroin abuse Heme/Lymph: No Bruising, No Bleeding,No Lymphadenopathy Endocrine : No Polyuria, No Polydipsia, No Temperature Intolerance [facility] Past Medical History Medical History Chronic pancreatitis Diabetes Fentanyl use disorder, moderate, dependence Opioid use disorder Osteomyelitis Surgical History Hx of cholecystectomy Social History Social History Household Members: Family Alcohol intake: current Alcohol intake frequency: a few times a week Patient Tobacco Use Status: Current everyday Tobacco user Cigarettes Per Day: 2 Substance Use Type: Heroin and Marijuana Advance Directives: No Advance Directives Information Provided: Yes Physical Exam Vital Signs: Vital Signs: Last Vital Signs Temp 97.7 F 09/28/21 16:00 Pulse 96 09/28/21 16:00 Resp 16 09/28/21 16:00 BP 127/79 09/28/21 16:00 Pulse Ox 97 09/28/21 16:00 Body Mass Index 27.0 Const: Other: Appearance: Alert. Oriented X3. No acute distress. Eyes: Pupils equal, round and reactive to light. ENT: Pharynx normal. Neck: Normal inspection. Neck supple. No lymph nodes noted. No crepitus CVS: Normal heart rate and rhythm. Pulses normal. Normal S1 and S2 Respiratory: No respiratory distress. Breath sounds normal. No Wheezing. No rales Abdomen: Soft and nontender. No rigidity. No distention. good BS x4 Skin: Skin warm and dry. Normal skin color. Normal skin turgor. Extremities: No lower extremity edema. No lower extremity edema. No Lacerations. No Rash Neuro: Oriented X 3. No motor deficit. No sensory deficit. Moving all extermities. No slurred speech. Course Course Course Narrative: Patient is awake and alert, oxygen saturation 98% on room air, ambulatory without assistance.. Patient talked to a assistant women's basketball coach. Patient does want to make his own phone calls, declined bed search Discharge Plan Discharge Clinical Impression: Drug overdose Patient Disposition: Home, Self-Care Instructions: Adult Overdose (ED) Additional Instructions: Please follow-up with your primary care physician tomorrow. If you have any worsening or new symptoms, please return to the emergency room or call 911 Prescriptions: No Action clonidine HCl 0.1 mg tablet 0.1 mg PO TID Qty: 21 RF: 0 hydroxyzine pamoate [Vistaril] 25 mg capsule 25 mg PO TID PRN (Reason: itching) Qty: 21 RF: 0 amlodipine 5 mg tablet 5 mg PO DAILY RF: 0 pravastatin 40 mg tablet 40 mg PO DAILY RF: 0 insulin lispro [Humalog KwikPen Insulin] 100 unit/mL insulin pen subcut RF: 0 buprenorphine-naloxone [Suboxone] 8-2 mg film 2 film sublingual DAILY 4 Days Qty: 8 RF: 0
[2021-09-28 15:40] VITALS: BP 157/90; PULSE 112; RESP 17; TEMP 36.5; O2SAT 99; BMI 27.0
[2021-09-28 16:00] VITALS: BP 127/79; PULSE 96; RESP 16; TEMP 36.5; O2SAT 97
--- NOTE | 2021-09-28 17:03 | MHC.RECOVSUP ---
Recovery Support note: Patient is a 36 year old Gibraltarian speaking male who presented to [facility] after an accidental overdose on [facility]. Patient is known to this designer/writer from previous consultations. This designer/writer met with patient to discuss overdose and recovery. Patient expresses regret regarding his decision to use. Patient let his MAT appointment and used in the bathroom. Patient reports he was concerned he would feel sick before his Suboxone prescription was ready. This designer/writer discussed recovery with patient and offered referral to ATS. Patient declined ATS however was receptive to meeting with a Scientific Database Curator. This designer/writer explained to patient what an SUDE is and patient declined SUDE. Discussed case with CARE Team and patient's ED provider.
[2021-09-28 17:15] VITALS: BP 158/105; PULSE 91; RESP 18; O2SAT 99
--- NOTE | 2021-09-28 17:31 | MHC.RECOVSUP ---
? Reason for consult Recovery support o Current location: ED10 o Identified substance use concern: Heroin - Overdose - Support ? Intervention: <del>o</del> <del>ATS</del> <del>bed</del> <del>search</del> <del>started/completed/in</del> <del>process</del> <del>o</del> <del>MAT</del> <del>started</del> <del>or</del> <del>to</del> <del>be</del> <del>started</del> o Community resources provided o Harm reduction discussion ? Plan: <del>o</del> <del>Referral</del> <del>to</del> <del>[facility]del> <del>o</del> <del>Bed</del> <del>search</del> <del>in</del> <del>progress</del> <del>to</del> <del>o</del> <del>Follow</del> <del>up</del> <del>tomorrow</del> <del>o</del> <del>Patient</del> <del>awaiting</del> <del>crisis</del> <del>evaluation</del> o Patient to follow up with [facility] after discharge ? Additional information: Met with patient and we talked about Harm reduction and he was given resources.. Patient is already on MAT
== END 2021-09-28 17:51 | disposition home or self-care (01) ==
PROVIDERS: Emergency Provider Emergency Medicine; PCP Pediatrics
DX: T40.1X1A Poisoning by heroin, accidental (unintentional), initial encounter (principal); Y92.239 Unspecified place in hospital as the place of occurrence of the external cause; Z79.899 Other long term (current) drug therapy; F17.210 Nicotine dependence, cigarettes, uncomplicated; Z71.6 Tobacco abuse counseling
CPT/HCPCS: 99283

== ENCOUNTER 2021-10-03 14:12 | Outpatient (REF) | payer OTHER, SELFPAY ==
[2021-10-07 06:57] LABS: Buprenorphine 3
[2021-10-07 06:58] LABS: Norbuprenorphine 16
[2021-10-07 06:59] LABS: Naloxone 42
== END 2021-10-03 14:13 | disposition home or self-care (01) ==
LOC: HO.LNP 14:12
PROVIDERS: Visit Provider Internal Medicine
DX: F11.20 Opioid dependence, uncomplicated (principal); F12.20 Cannabis dependence, uncomplicated; E11.9 Type 2 diabetes mellitus without complications; M86.9 Osteomyelitis, unspecified; K86.1 Other chronic pancreatitis; F17.210 Nicotine dependence, cigarettes, uncomplicated; Z51.81 Encounter for therapeutic drug level monitoring
CPT/HCPCS: 80305; 80348; 80362; 99212

== ENCOUNTER 2021-10-10 09:54 | Outpatient (REF) | payer OTHER, SELFPAY ==
[2021-10-10 18:48] LABS: Fentanyl, urine POSITIVE (Not Detect)
== END 2021-10-10 09:55 | disposition home or self-care (01) ==
LOC: HO.LNP 09:54
PROVIDERS: Visit Provider Internal Medicine
DX: F11.20 Opioid dependence, uncomplicated (principal); F13.20 Sedative, hypnotic or anxiolytic dependence, uncomplicated; K86.1 Other chronic pancreatitis; E11.65 Type 2 diabetes mellitus with hyperglycemia; E11.69 Type 2 diabetes mellitus with other specified complication; M86.9 Osteomyelitis, unspecified; F12.20 Cannabis dependence, uncomplicated; F17.210 Nicotine dependence, cigarettes, uncomplicated; Z51.81 Encounter for therapeutic drug level monitoring; Z79.899 Other long term (current) drug therapy
CPT/HCPCS: 80305; 80307; 99212

== ENCOUNTER → 2021-10-11 09:54 | Outpatient (BNVA) | payer OTHER, SELFPAY | PROVIDERS: Visit Provider Internal Medicine | DX: Z51.81 Encounter for therapeutic drug level monitoring (principal); F11.20 Opioid dependence, uncomplicated; F17.210 Nicotine dependence, cigarettes, uncomplicated; F12.90 Cannabis use, unspecified, uncomplicated | CPT/HCPCS: 80305; 99212 ==